=== PATIENT | female | born 1955 | race Caucasian/White ===

== ENCOUNTER 2022-06-27 09:33 | Emergency (ER) | payer BC, MEDICAID ==
[~2022-06-27] VITALS: Ht 162.6 cm; Wt 56.0 kg
[~2022-06-27 09:33] MED LIST: ACET-2119 PO; DIPH25TA62 PO; Marijuana PO; [UNRECOGNIZED DRUG - CODE] PO
[2022-06-27 09:45] VITALS: BP 144/88
[2022-06-27] MEDS ORDERED: LIDOcaine 1% W/epiNEPHrine 1:100,000 20ml vial SQ ONE (11:45)
[2022-06-27] MEDS ORDERED: SULF1TAB49 PO (12:19)
[2022-06-27] MEDS ORDERED: CEPH500C82 PO (12:19)
[2022-06-27] MEDS ORDERED: sulfamethoxazole/trimethoprim DS (800/160mg) tablet PO ONE (12:20)
[2022-06-27] MEDS ORDERED: cephalexin 500mg capsule PO ONE (12:20)
== END 2022-06-27 12:39 | disposition home or self-care (01) ==
LOC: ER 09:33
DX: L02.31 Cutaneous abscess of buttock (principal)
CPT/HCPCS: 99283; A6449

== ENCOUNTER 2024-03-25 13:28 | Emergency (ER) | payer BC, MEDICAID ==
[~2024-03-25] VITALS: Ht 162.6 cm; Wt 55.3 kg
[~2024-03-25 13:28] MED LIST changes: +MULT-225 PO; -[UNRECOGNIZED DRUG - CODE] PO
[2024-03-25 15:17] LABS: BASOPHILS % (AUTO) 0.3 % (0-1); EOSINOPHILS # (AUTO) 0.1 X10'3 (0-0.9); EOSINOPHILS % (AUTO) 0.8 % (0-6); HEMATOCRIT 36.8 % (35.0-45.0); HEMOGLOBIN 12.4 g/dl (12.0-16.0); LYMPHOCYTES # (AUTO) 0.8 X10'3 (1.1-4.8); MEAN CORPUSCULAR HEMOGLOBIN 29.2 PG (27.0-31.0); MEAN CORPUSCULAR HGB CONC 33.7 g/dL (33.0-36.5); MEAN CORPUSCULAR VOLUME 86.6 FL (78-98); MEAN PLATELET VOLUME 6.8 FL (7.4-10.4); MONOCYTES # (AUTO) 0.8 X10'3 (0-0.9); MONOCYTES % (AUTO) 6.9 % (2-12); NEUTROPHILS # (AUTO) 10.2 X10'3 (1.8-7.7); PLATELET COUNT 434 X10'3 (140-440); RED BLOOD COUNT 4.25 X10'6 (4.20-5.60); RED CELL DISTRIBUTION WIDTH 12.9 % (11.5-14.5); WHITE BLOOD COUNT 12.1 X10'3 (4.5-11.0)
[2024-03-25] MEDS ORDERED: HYDR-3965 PO (16:49)
[2024-03-25] MEDS ORDERED: DOXY100C43 PO (16:49)
[2024-03-25] MEDS ORDERED: CLIN60LO TOP (16:49)
[2024-03-25 17:10] VITALS: BP 125/82; PULSE 68; RESP 16; TEMP 99.2; O2SAT 98
[2024-03-25 17:26] LABS: ALANINE AMINOTRANSFERASE 23 U/L (12-78); ALBUMIN 2.8 G/DL (3.4-5.0); ALBUMIN/GLOBULIN RATIO 0.6 (1.1-1.5); ALKALINE PHOSPHATASE 74 IU/L (46-116); ANION GAP 10 (8-16); ASPARTATE AMINO TRANSFERASE 18 U/L (10-37); BILIRUBIN,TOTAL 0.3 MG/DL (0.1-1.0); BLOOD UREA NITROGEN 18 MG/DL (7-18); BUN/CREATININE RATIO 28.1 (10.0-20.0); CALCIUM 9.2 MG/DL (8.5-10.1); CHLORIDE 99 MMOL/L (99-107); CREATININE 0.64 MG/DL (0.40-0.90); GLUCOSE 108 MG/DL (70-104); POTASSIUM 4.4 MMOL/L (3.5-5.1); SODIUM 134 MMOL/L (135-145); TOTAL CARBON DIOXIDE 24.8 MMOL/L (24-32); TOTAL PROTEIN 7.3 G/DL (6.4-8.2); eCRCL 72 ML/MIN; eGFR > 90 ML/MIN
== END 2024-03-25 17:18 | disposition home or self-care (01) ==
LOC: ER 13:30
DX: L73.2 Hidradenitis suppurativa (principal); Z85.3 Personal history of malignant neoplasm of breast
CPT/HCPCS: 36415; 76881; 80053; 85025; 99284